=== PATIENT | female | born 1990 | race Two or more races ===

== ENCOUNTER 2016-04-07 09:58 | Emergency (ER) | payer MEDICAID, OTHER ==
[~2016-04-07] VITALS: Ht 160 cm; Wt 50.3 kg
[2016-04-07 10:19] VITALS: BP 119/84
[2016-04-07 11:53] LABS: Urine Bilirubin Negative (Negative); Urine Blood Negative /uL (Negative); Urine Color Yellow (Yellow); Urine Glucose Normal (Normal); Urine Ketone Negative (Negative); Urine Nitrite Negative (Negative); Urine RBC 2 /hpf (0 - 4); Urine Squamous Epithelial Cell MANY /hpf (<5); Urine Urobilinogen Normal (Negative)
[2016-04-07] MEDS ORDERED: PHENAZOPYRIDINE HCL 100 MG TAB PO ONE (12:15)
== END 2016-04-07 13:00 | disposition home or self-care (01) ==
LOC: ER 09:58
DX: N39.0 Urinary tract infection, site not specified (principal); Z88.6 Allergy status to analgesic agent
CPT/HCPCS: 81001